=== PATIENT | female | born 1950 | race Caucasian/White ===

== ENCOUNTER → 2016-09-18 | Outpatient (CLI) | payer MEDICARE, OTHER ==
--- NOTE | 2016-09-18 16:00 | BD ---
EXAMINATION TYPE: MG DEXA axial skeleton. DATE OF EXAM: 09/18/2016 10:16 AM COMPARISON: 05.16.2013 CLINICAL HISTORY: M85.80 OSTIOPENIA, Z00.00 ANNUAL PE Height: 59.5 Weight: 139 FRAX RISK QUESTIONS: Alcohol (3 or more units per day): NO Family History (Parent hip fracture): UNKNOWN Glucocorticoids (More than 3mos): NO (Ex: prednisone, prednisolone, methylprednisolone, dexamethasone, and hydrocortisone). History of Fracture in Adulthood: NO Secondary Osteoporosis: 1. Type 1 Diabetes: NO 2. Hyperthyroidism: NO 3. Menopause before 45: NO 4. Malnutrition: NO 5. Chronic liver disease: NO Rheumatoid Arthritis: NO Current Tobacco Use: NO RISK FACTORS HISTORY OF: Family History of Osteoporosis: UNSURE Smoke tobacco: NO Drink Alcohol: SOCIAL Active: YES Diet low in dairy products/other sources of calcium: NO Postmenopausal woman: AT AGE 51 Lost more than 2 inches in height since high school: POSSIBLY Adrenal Insufficiency: NO MEDICATIONS: Thyroid Medications: YES Which medication: LEVTHYROXINE 0.75 How Lon YRS Additional Medications: VIACTIVE, CALCIUM AND D3, Additional History: NONE TO NOTE EXAM MEASUREMENTS: Bone mineral densitometry was performed using the VoluBill System. Bone mineral density as measured about the Lumbar spine is: ----- L1-L4(G/cm2): 1.015 T Score Values are as follows: ----- L1: -1.5 ----- L2: -2.0 ----- L3: -1.2 ----- L4: -1.1 ----- L1-L4: -1.4 Bone mineral density has: Increased 1.4% since study of: 05.16.2013 Bone mineral density about the R hip (g/cm2): 0.895 Bone mineral density about the L hip (g/cm2): 0.859 T Score values are as follows: -----R Neck: -1.0 -----L Neck: -1.3 -----R Intertrochanter: -1.5 -----L Intertrochanter: -1.3 Bone mineral density has: Decreased -6.6% since study of: 05.16.2013 FRAX%'S: FOR MAJOR OSTEOPOROTIC FX: 8.5%......FOR HIP FX: 0.8% PROBABILITY OF FX IN 10 YRS TIME IMPRESSION: Osteopenia (T Score between -2.5 and -1 as noted by T score values There is slightly increased risk of fracture and the patient may be considered for treatment. Re-Screen 1-2 years. NOTE: T-SCORE=SD OF THE YOUNG ADULT MEAN.
== END | disposition home or self-care (01) ==
LOC: RADBDWWP 09:47
PROVIDERS: ATTEND Family Medicine
DX: M85.80 Other specified disorders of bone density and structure, unspecified site (principal)
CPT/HCPCS: 77080

== ENCOUNTER → 2017-04-20 | Outpatient (CLI) | payer MEDICARE, OTHER ==
--- NOTE | 2017-04-20 11:34 | US ---
EXAMINATION TYPE: US abdomen complete DATE OF EXAM: 04/20/2017 COMPARISON: NONE CLINICAL HISTORY: R10.84 Generalized abdominal pain. EXAM MEASUREMENTS: Liver Length: 13.1 cm Gallbladder Wall: 0.3 cm CBD: 0.3 cm Spleen: 9.2 cm Right Kidney: 11.5 x 3.1 x 4.2 cm Left Kidney: 10.9 x 4.4 x 3.9 cm Pancreas: wnl Liver: wnl Gallbladder: multiple stones Evidence for sonographic Griffin's sign: no CBD: 3 mm, within normal limits Spleen: wnl Right Kidney: wnl Left Kidney: portions obscured by overlying bowel gas Upper IVC: wnl Abd Aorta: Bifurcation obscured by overlying bowel gas. Mild to moderate atheromatous changes. Cholelithiasis. The liver is homogenous. The intrahepatic portion of the IVC and proximal abdominal aorta are within normal limits. Common bile duct is unremarkable. The visualized portions of the pancreas are homog enous. The spleen is unremarkable. Kidneys are symmetric and free of hydronephrosis. No renal lesi ons are seen. IMPRESSION: Cholelithiasis without sonographic evidence of cholecystitis.
== END | disposition home or self-care (01) ==
LOC: RADUSWWP 10:22
PROVIDERS: ATTEND Family Medicine
DX: K80.20 Calculus of gallbladder without cholecystitis without obstruction (principal)
CPT/HCPCS: 76700

== ENCOUNTER → 2017-10-17 | Outpatient (CLI) | payer MEDICARE, OTHER ==
--- NOTE | 2017-10-18 13:11 | MM ---
Reason for exam: screening (asymptomatic). Last mammogram was performed 1 year and 3 months ago. History: Patient is postmenopausal. Benign stereotactic core biopsy of the right breast, February 06, 2003. Ultrasound-guided core biopsy of the left breast, January 21, 2003. Cyst aspiration of the left breast. Took estrogen for 4 years 4 months beginning at age 51. Took progesterone for 4 years 4 months beginning at age 51. Physical Findings: A clinical breast exam by your physician is recommended on an annual basis and results should be correlated with mammographic findings. MG 3D Screening Mammo W/Cad Bilateral CC and MLO view(s) were taken. Prior study comparison: July 03, 2016, bilateral MG 3d screening mammo w/cad. June 29, 2015, bilateral MG screening mammo w CAD. The breast tissue is heterogeneously dense. This may lower the sensitivity of mammography. Stable benign calcifications. No significant changes when compared with prior studies. ASSESSMENT: Benign, BI-RAD 2 RECOMMENDATION: Routine screening mammogram of both breasts in 1 year.
== END | disposition home or self-care (01) ==
LOC: RADMAMWWP 13:50
PROVIDERS: ATTEND Family Medicine
DX: Z12.31 Encounter for screening mammogram for malignant neoplasm of breast (principal)
CPT/HCPCS: 77063; 77067

== ENCOUNTER → 2017-10-24 | Day surgery (SDC) | payer MEDICARE, OTHER ==
[2017-10-22 08:49] VITALS: BMI 27.3
[~2017-10-24] MED LIST: LACTATED RINGERS 1,000 ML IV ONE; LACTATED RINGERS 1,000 ML IV SCH; LIDOCAINE 1% 20 ML VIAL (10MG/ML) FOR IV START INTRADERMA PRN; PROPOFOL 10 MG/ML 20 ML VIAL IV ONE
[2017-10-24 08:26] VITALS: TEMP 98.1
--- NOTE | 2017-10-24 08:52 | P.PCN ---
Date of Procedure: 10/24/17 Procedure(s) Performed: BRIEF HISTORY: Patient is a 67-year-old pleasant white female, scheduled for an elective colonoscopy as a part of screening for colon neoplasia. PROCEDURE PERFORMED: Colonoscopy. PREOPERATIVE DIAGNOSIS: Screening for colon cancer. IV sedation per Anesthesia. PROCEDURE: After informed consent was obtained, the patient, was brought into the endoscopy unit. IV sedation was administered by Anesthesia under continuous monitoring. Digital rectal examination was normal. Initially the Olympus CF- 160 flexible video colonoscope was then inserted in the rectum, gradually advanced into the cecum without any difficulty. Careful examination was performed as the scope was gradually being withdrawn. Ileocecal valve and the appendiceal orifice were visualized and appeared normal. Prep was excellent. Mucosa of the cecum, ascending colon, transverse colon, descending colon, sigmoid colon, and rectum appeared normal. Scattered sigmoid diverticulosis. Retroflexion was performed in the rectum and no lesions were seen. The patient tolerated the procedure well. IMPRESSION: Normal-appearing colon from rectum to cecum with no evidence of colorectal neoplasia. Scattered sigmoid diverticulosis. RECOMMENDATIONS: Findings of this examination were discussed with the patient as well as a family. She was advised to have a repeat screening colonoscopy in 10 years.
[2017-10-24 08:57] VITALS: RESP 16
[2017-10-24 09:04] VITALS: BP 129/77; PULSE 71
== END ==
LOC: ORWHC2ENDO 07:59
PROVIDERS: ATTEND Internal Medicine Gastroenterology
DX: Z12.11 Encounter for screening for malignant neoplasm of colon (principal); K57.30 Diverticulosis of large intestine without perforation or abscess without bleeding; E07.9 Disorder of thyroid, unspecified; Z79.899 Other long term (current) drug therapy; Z88.2 Allergy status to sulfonamides
CPT/HCPCS: J2704; G0121

== ENCOUNTER → 2019-02-17 | Outpatient (CLI) | payer MEDICARE, OTHER ==
--- NOTE | 2019-02-18 10:59 | MM ---
Reason for exam: screening (asymptomatic). Last mammogram was performed 1 year and 4 months ago. History: Patient is postmenopausal. Benign stereotactic core biopsy of the right breast, February 06, 2003. Ultrasound-guided core biopsy of the left breast, January 21, 2003. Cyst aspiration of the left breast. Took estrogen for 4 years 4 months beginning at age 51. Took progesterone for 4 years 4 months beginning at age 51. Physical Findings: A clinical breast exam by your physician is recommended on an annual basis and results should be correlated with mammographic findings. MG 3D Screening Mammo W/Cad Bilateral CC and MLO view(s) were taken. Prior study comparison: October 17, 2017, bilateral MG 3d screening mammo w/cad. July 03, 2016, bilateral MG 3d screening mammo w/cad. The breast tissue is heterogeneously dense. This may lower the sensitivity of mammography. No significant changes when compared with prior studies. ASSESSMENT: Benign, BI-RAD 2 RECOMMENDATION: Routine screening mammogram of both breasts in 1 year.
== END | disposition home or self-care (01) ==
LOC: RADMAMWWP 13:29
PROVIDERS: ATTEND Family Medicine
DX: Z12.31 Encounter for screening mammogram for malignant neoplasm of breast (principal)
CPT/HCPCS: 77063; 77067

== ENCOUNTER → 2020-04-26 | Outpatient (CLI) | payer MEDICARE, OTHER ==
--- NOTE | 2020-04-26 18:36 | BD ---
EXAMINATION TYPE: Axial Bone Density DATE OF EXAM: 04/26/2020 COMPARISON: NONE CLINICAL HISTORY: POSTMENOPAUSAL SCREENING Height: 5 FT Weight: 148 FRAX RISK QUESTIONS: Alcohol (3 or more units per day): NO Family History (Parent hip fracture): NO Glucocorticoids (More than 3mos): NO (Ex: prednisone, prednisolone, methylprednisolone, dexamethasone, and hydrocortisone). History of Fracture in Adulthood: NO Secondary Osteoporosis: 1. Type 1 Diabetes: NO 2. Hyperthyroidism: NO 3. Menopause before 45: NO 4. Malnutrition: NO 5. Chronic liver disease: NO Rheumatoid Arthritis: NO Current Tobacco Use: NO RISK FACTORS HISTORY OF: Family History of Osteoporosis: YES Active: YES Postmenopausal woman: AROUND 44-46 MEDICATIONS: Thyroid Medications: YES Which medication: LEVOTHYROXINE How Long: APROX 7 YEARS Additional Medications: LEVOTHYROXINE,B12, FISH OIL,ANTIBIOTIC Additional History: EXAM MEASUREMENTS: Bone mineral densitometry was performed using the Risk Ident System. Bone mineral density as measured about the Lumbar spine is: ----- L1-L4(G/cm2): 0.927 T Score Values are as follows: ----- L2: -2.9 ----- L3: -1.7 ----- L4: -1.9 ----- L1-L4: -2.1 Bone mineral density has: DECREASED -8.6 % since study of: 2017 Bone mineral density about the R hip (g/cm2): 0.887 Bone mineral density about the L hip (g/cm2): 0.866 T Score values are as follows: -----R Neck: -1.1 -----L Neck: -1.2 -----R Total: -0.6 -----L Total: -0.4 Bone mineral density has: INCREASED 2.0 % since study of: 2017 IMPRESSION: Osteopenia (T Score between -2.5 and -1). There is slightly increased risk of fracture and the patient may be considered for treatment. Re-Screen 2-5 years. NOTE: T-SCORE=SD OF THE YOUNG ADULT MEAN.
--- NOTE | 2020-04-27 10:15 | MM ---
Reason for exam: screening (asymptomatic). Last mammogram was performed 1 year and 2 months ago. History: Patient is postmenopausal. Benign stereotactic core biopsy of the right breast, February 06, 2003. Ultrasound-guided core biopsy of the left breast, January 21, 2003. Cyst aspiration of the left breast. Took estrogen for 4 years 4 months beginning at age 51. Took progesterone for 4 years 4 months beginning at age 51. Taking other hormone. Physical Findings: A clinical breast exam by your physician is recommended on an annual basis and results should be correlated with mammographic findings. MG 3D Screening Mammo W/Cad Bilateral CC and MLO view(s) were taken. Prior study comparison: February 17, 2019, bilateral MG 3d screening mammo w/cad. October 17, 2017, bilateral MG 3d screening mammo w/cad. The breast tissue is heterogeneously dense. This may lower the sensitivity of mammography. Stable benign calcifications. There is chronic nodularity in the left breast. No significant changes when compared with prior studies. ASSESSMENT: Benign, BI-RAD 2 RECOMMENDATION: Routine screening mammogram of both breasts in 1 year.
== END | disposition home or self-care (01) ==
LOC: RADMAMWWP 08:56
PROVIDERS: ATTEND Nurse Practitioner
DX: Z12.31 Encounter for screening mammogram for malignant neoplasm of breast (principal); Z78.0 Asymptomatic menopausal state; M85.80 Other specified disorders of bone density and structure, unspecified site
CPT/HCPCS: 77063; 77067; 77080

== ENCOUNTER → 2021-06-07 | Outpatient (CLI) | payer MEDICARE, OTHER ==
--- NOTE | 2021-06-09 10:31 | MM ---
Reason for exam: screening (asymptomatic). Last mammogram was performed 1 year and 1 month ago. History: Patient is postmenopausal. Benign stereotactic core biopsy of the right breast, February 06, 2003. Ultrasound-guided core biopsy of the left breast, January 21, 2003. Cyst aspiration of the left breast. Took estrogen for 4 years 4 months beginning at age 51. Took progesterone for 4 years 4 months beginning at age 51. Taking other hormone. Physical Findings: A clinical breast exam by your physician is recommended on an annual basis and results should be correlated with mammographic findings. MG 3D Screening Mammo W/Cad Bilateral CC and MLO view(s) were taken. Prior study comparison: April 26, 2020, bilateral MG 3d screening mammo w/cad. February 17, 2019, bilateral MG 3d screening mammo w/cad. October 17, 2017, bilateral MG 3d screening mammo w/cad. The breast tissue is extremely dense which could obscure a lesion on mammography. Finding: There are developing fine, regional calcifications in the upper quadrant, middle position of the left breast on MLO view. New finding since April 26, 2020, February 17, 2019, and October 17, 2017. ASSESSMENT: Incomplete: need additional imaging evaluation, BI-RAD 0 RECOMMENDATION: Special view mammogram of the left breast. [facility] will attempt to contact patient to return for supplemental views.
== END | disposition home or self-care (01) ==
LOC: RADMAMWWP 14:18
PROVIDERS: ATTEND Family Medicine
DX: Z12.31 Encounter for screening mammogram for malignant neoplasm of breast (principal)
CPT/HCPCS: 77063; 77067

== ENCOUNTER → 2021-06-24 | Outpatient (CLI) | payer MEDICARE, OTHER ==
--- NOTE | 2021-06-24 11:57 | MM ---
Reason for exam: additional evaluation requested from abnormal screening. Last mammogram was performed 1 month ago. History: Patient is postmenopausal. Benign stereotactic core biopsy of the right breast, February 06, 2003. Ultrasound-guided core biopsy of the left breast, January 21, 2003. Cyst aspiration of the left breast. Took estrogen for 4 years 4 months beginning at age 51. Took progesterone for 4 years 4 months beginning at age 51. Taking other hormone. Physical Findings: Nurse did not find any significant physical abnormalities on exam. MG 3D Work Up W/Cad LT CC with magnification, LM with magnification, and LM view(s) were taken of the left breast. Prior study comparison: June 07, 2021, bilateral MG 3d screening mammo w/cad. April 26, 2020, bilateral MG 3d screening mammo w/cad. The breast tissue is heterogeneously dense. This may lower the sensitivity of mammography. Heterogeneous calcifications. Mammotome core biopsy upper outer left breast. These results were verbally communicated with the patient and result sheet given to the patient on 06/24/21. ASSESSMENT: Suspicious, BI-RAD 4 RECOMMENDATION: Stereotactic core biopsy of the left breast. Called Dr. Boss's office with mammographic findings and has scheduled an appointment for the patient for 07/22/21 at 7:[address] Britt. Biopsy scheduled for 07/22/21 at 7:00. PRELIMINARY REPORT CALLED AND FAXED TO DR. BRITT ON 06/24/21.
== END | disposition home or self-care (01) ==
LOC: RADMAMWWP 10:09
PROVIDERS: ATTEND Family Medicine
DX: R92.8 Other abnormal and inconclusive findings on diagnostic imaging of breast (principal)
CPT/HCPCS: 77065; G0279; 77061

== ENCOUNTER → 2021-07-22 | Outpatient (CLI) | payer MEDICARE, OTHER ==
--- NOTE | 2021-07-22 07:57 | P.GSHP ---
History of Present Illness H&P Date: 07/22/21 Chief Complaint: abnormal mammogram Saranya is a 71 year old white female seen in consultation for Dr. Boss for anabnormal left breast mammogram. She had a screening mammogram performed in May 2021 after which additional views of the left breast were recommended. The patient underwent a left breast diagnostic mammogram on [id number] which revealed heterogeneous calcifications and stereotactic core biopsy upper outer left breast was recommended. The patient does not feel anything of concern in her breasts. She is not complaining of any nipple discharge or skin changes. The patient has had a stereo biopsy of the right breast in the past which was benign. She has had multiple aspirations of both breasts in the past. She has never had any cancer. Caffeine:3 cups/day nicotine: none, stopped 20 years ago used to smoke 1/PPD for 35 years chocolate: occasional Family History: niece: breast cancer Hormonal History: menarche: 13 M1, breast fed: yes, age at first : 19 menopause: 46 BCP: 1 year hormones: none Surgical History: cleft palate tubaligation gallbladder bunyon left foot Medical History: hypothyroid Social History: nicotine: none/ prior smoker alcohol: 4 X year drugs: none - Constitutional Constitutional: Denies chills, Denies fever - EENT Eyes: denies blurred vision, denies pain Ears: deny: decreased hearing, tinnitus Ears, nose, mouth and throat: Denies headache, Denies sore throat - Breasts Breasts: bilateral: as per HPI - Cardiovascular Cardiovascular: Denies chest pain, Denies shortness of breath - Respiratory Respiratory: Denies cough, Denies 7 - Gastrointestinal Gastrointestinal: Denies abdominal pain, Denies diarrhea, Denies nausea, Denies vomiting - Genitourinary (Female) Genitourinary: Denies dysuria, Denies hematuria - Menstruation Menstruation: Reports postmenopausal - Musculoskeletal Comment: ? arthritis right hip Musculoskeletal: Reports myalgias - Integumentary Integumentary: Denies pruritus, Denies rash - Neurological Neurological: Denies numbness, Denies weakness - Psychiatric Psychiatric: Denies anxiety, Denies depression - Endocrine Comment: hypothyroid - Allergic/Immunologic Allergic/Immunologic: Reports as per HPI Medications and Allergies Home Medications Medication Instructions Recorded Confirmed Type Levothyroxine Sodium [Synthroid] 75 mcg PO DAILY 10/22/17 07/22/21 History Allergies Allergy/AdvReac Type Severity Reaction Status Date / Time mercury (elemental) Allergy ITCHY, RAW Verified 07/22/21 07:28 SKIN nickel Allergy ITCHY, RAW Verified 07/22/21 07:28 SKIN Sulfa (Sulfonamide Allergy FACIAL Verified 07/22/21 07:28 Antibiotics) SWELLING Surgical - Exam - General no distress - Eyes normal ocular movement - ENT normal nares - Neck trachea midline - Respiratory normal respiratory effort, clear to auscultation - Cardiovascular Rhythm: regular Heart Sounds: normal: S1, S2 - Abdomen Abdomen: soft - Integumentary normal turgor - Neurologic no disoriented, no combative - Musculoskeletal normal gait - Psychiatric oriented to time, oriented to person, oriented to place, speech is normal, memory intact Breast Exam: BRA: 38B inspection: bilateral grade 2/3 ptosis palpation: right breast: Multi-positional exam fibrocystic changes no dominant masses or nodules of concern Right axilla: No adenopathy of concern left breast: Multiple positional exam fibrocystic changes no dominant masses or nodules of concern Left axilla: No adenopathy of concern Results Mammogram reviewed with Dr. Thornton, microcalcifications of concern noted left breast Assessment and Plan Assessment: Impression: 1. Abnormal left breast mammogram/microcalcifications of concern 2. Fibrocystic breast changes Plan: 1. Stereotactic core biopsy left breast Risks and benefits of the procedure discussed with the patient. Risks include but are not limited to bleeding, infection, reaction to the anesthetic. The possibility of being unable to target the lesion or not obtaining the correct area was also discussed. The patient understands and wishes to proceed. The patient understands the findings are discordant we may recommend needle localization and open biopsy. Cc: Dr. Boss
--- NOTE | 2021-07-22 08:51 | P.PCN ---
Date of Procedure: 07/22/21 Preoperative Diagnosis: Microcalcifications of concern left breast upper outer quadrant region Postoperative Diagnosis: Same Procedure(s) Performed: Left breast stereotactic core biopsy Anesthesia: local Surgeon: Cait Britt Pathology: other (Breast tissue with microcalcifications of concern noted in radiograph) Condition: stable Disposition: same day Indications for Procedure: Microcalcifications of concern left breast upper outer quadrant Operative Findings: Microcalcifications of concern x-ray specimen left breast Description of Procedure: The patient is a 71-year-old white female who on a routine screening mammogram was noted to have microcalcifications of concern in her left breast. Diagnostic mammogram confirmed this and she was recommended to undergo a stereotactic core biopsy. Risks and benefits of the procedure were discussed with the patient and she wished to proceed. The patient was taken to the stereotactic core biopsy. She was placed prone on the lower lid table. A quality assurance lab technician film was obtained. The calcifications of concern were identified. CC from above approach was utilized. The lesion of concern was targeted. The breast was prepped using Betadine. 20 mL of 1% lidocaine were used to anesthetize the area of concern. A 9-gauge vacuum- assisted core rotating biopsy needle was driven to the correct coordinates. Prefire film was obtained. The needle was fired and a post-fire film was obtained. The needle appeared to be in the correct location. 12 core biopsy specimens were obtained. Radiograph of the specimen revealed the microcalcifications of concern. A secure marked Top hat clip was placed. This appeared to be in the correct location. The patient tolerated the procedure in stable condition. Specimen was sent to pathology. The patient will follow-up with Dr. Ross for post procedure results.
== END | disposition home or self-care (01) ==
LOC: WWCWWP 07:00
PROVIDERS: ATTEND Surgery
DX: Z53.9 Procedure and treatment not carried out, unspecified reason (principal)

== ENCOUNTER → 2021-07-22 | Day surgery (SDC) | payer MEDICARE, OTHER ==
[2021-07-22 07:34] VITALS: RESP 16
[2021-07-22 09:02] VITALS: BP 150/92; PULSE 73; TEMP 98.1
--- NOTE | 2021-07-22 09:39 | MM ---
The patient is a 71-year-old white female who on a routine screening mammogram was noted to have microcalcifications of concern in her left breast. Diagnostic mammogram confirmed this and she was recommended to undergo a stereotactic core biopsy. Risks and benefits of the procedure were discussed with the patient and she wished to proceed. The patient was taken to the stereotactic core biopsy. She was placed prone on the lo-rad table. A pediatric physician assistant film was obtained. The calcifications of concern were identified. CC from above approach was utilized. The lesion of concern was targeted. The breast was prepped using Betadine. 20 mL of 1% lidocaine were used to anesthetize the area of concern. A 9-gauge vacuum- assisted core rotating biopsy needle was driven to the correct coordinates. Prefire film was obtained. The needle was noted to be in the correct location. The needle was fired and a post-fire film was obtained. The needle appeared to be in the correct location. 12 core biopsy specimens were obtained. Radiograph of the specimen revealed the microcalcifications of concern. A secure marked Top hat clip was placed. This appeared to be in the correct location. The patient tolerated the procedure in stable condition. Specimen was sent to pathology. The patient will follow-up with Dr. Ross for post procedure results. [facility] MEDICAL CENTERBrijesh
== END ==
LOC: RADMAMWWP 07:24
PROVIDERS: ATTEND Surgery
DX: R92.0 Mammographic microcalcification found on diagnostic imaging of breast (principal)
CPT/HCPCS: 19081; 88305; A4648; J2001

== ENCOUNTER → 2021-08-04 | Outpatient (CLI) | payer MEDICARE, OTHER ==
[2021-08-04 10:13] VITALS: BP 144/88; PULSE 78; RESP 18; TEMP 98.3
--- NOTE | 2021-08-04 10:17 | P.PN ---
Subjective Progress Note Date: 08/04/21 Principal diagnosis: Fibrocystic breast changes Saranya is a 71-year-old white female status post left breast stereotactic core biopsy on [id number]. Pathology revealed fibrocystic changes including cyst with calcifications and dense stromal fibrosis/scar. The patient post procedure has done well with no complaints. The pathology slides were reviewed with Dr. Anderson, he felt that this was not a radial scar but it should be followed closely. This was discussed with the patient. She will have a repeat left breast mammogram in 6 months with a physician exam at that time.] Objective - Constitutional General appearance: Present: cooperative - EENT Eyes: Present: EOMI - Neck Neck: Present: normal ROM - Respiratory Respiratory: bilateral: CTA - Cardiovascular Rhythm: regular Heart sounds: normal: S1, S2 - Integumentary Integumentary Comment(s): Biopsy site clean and dry - Psychiatric Psychiatric: Present: A&O x's 3, appropriate affect, intact judgment & insight Assessment and Plan Assessment: Impression: Patient status post left breast stereo biopsy [id number]. Pathology benign, this was reviewed with pathology and not felt to be a radial scar however close surveillance is recommended Plan: Repeat left breast mammogram and examination in 6 months CC: Dr. Boss
== END | disposition home or self-care (01) ==
LOC: WWCWWP 09:47
PROVIDERS: ATTEND Surgery
DX: Z53.9 Procedure and treatment not carried out, unspecified reason (principal)

== ENCOUNTER 2021-08-22 16:39 | Emergency (ER) | payer MEDICARE, OTHER ==
--- NOTE | 2021-08-22 17:54 | ED ---
General Adult HPI <Hina Cee - Last Filed: 08/22/21 17:53> - General Source: patient, RN notes reviewed, old records reviewed - History of Present Illness -: days(s) (3) Location: head Severity scale (1-10): 0 Consistency: now resolved Improves with: none Worsens with: none Associated Symptoms: fever/chills, headaches, malaise Treatments Prior to Arrival: none <Flo Ramsey - Last Filed: 08/22/21 23:12> - General Stated complaint: headache & fever Time Seen by Provider: 08/22/21 20:40 - History of Present Illness Initial comments: Claudia moncada 71-year-old female presents to the ER today via private vehicle with a complaint of headache, fever for 3 days duration. Patient multiple sick contacts at [facility] last night but subsequently tested positive and been hospitalized for COVID-19. Patient is concerned that herself and her mother have COVID-19. Patient is not vaccinated. (Hina Cee) This is a well-appearing 71-year-old female that presents to the emergency room with family member complaining of 3 days of headache malaise. She has not been vaccinated against coronavirus. She is Covid positive and requesting monoclonal antibodies. (Flo Ramsey) - Related Data Home Medications Medication Instructions Recorded Confirmed Levothyroxine Sodium [Synthroid] 75 mcg PO DAILY 10/22/17 08/04/21 Ascorbic Acid [Vitamin C] 500 mg PO BID 08/04/21 08/04/21 Calcium Carbonate [Calcium] 600 mg PO BID 08/04/21 08/04/21 Cholecalciferol [Vitamin D3 (25 50 mcg PO BID 08/04/21 08/04/21 Mcg = 1000 Iu)] Fish Oil/Dha/Epa [Fish Oil 1,200 1 each PO DAILY 08/04/21 08/04/21 mg Fish Oil] Multivitamin [Multivitamins Adult 1 each PO BID 08/04/21 08/04/21 Gummies] Turmeric Root Extract [Turmeric] 500 mg PO DAILY 08/04/21 08/04/21 Zinc 50 mg PO HS 08/04/21 08/04/21 Allergies Allergy/AdvReac Type Severity Reaction Status Date / Time mercury (elemental) Allergy ITCHY, RAW Verified 08/22/21 17:51 SKIN nickel Allergy ITCHY, RAW Verified 08/22/21 17:51 SKIN Sulfa (Sulfonamide Allergy FACIAL Verified 08/22/21 17:51 Antibiotics) SWELLING Review of Systems ROS Other: All systems not noted in ROS Statement are negative. <ColemanHina P - Last Filed: 08/22/21 17:53> ROS Other: All systems not noted in ROS Statement are negative. <Flo Ramsey - Last Filed: 08/22/21 23:12> ROS Statement: Those systems with pertinent positive or pertinent negative responses have been documented in the HPI. Past Medical History History of Any Multi-Drug Resistant Organisms: None Reported Smoking Status: Former smoker <Hina Cee P - Last Filed: 08/22/21 17:53> General Exam General appearance: alert, in no apparent distress Head exam: Present: atraumatic, normocephalic, normal inspection Eye exam: Present: normal appearance, EOMI. Absent: scleral icterus, conjunctival injection ENT exam: Present: normal exam, normal oropharynx, mucous membranes moist Neck exam: Present: normal inspection, full ROM. Absent: tenderness, meningismus, lymphadenopathy, thyromegaly Respiratory exam: Present: normal lung sounds bilaterally. Absent: respiratory distress, wheezes, rales, rhonchi, stridor Cardiovascular Exam: Present: regular rate, normal rhythm, normal heart sounds. Absent: systolic murmur, diastolic murmur, rubs, gallop, clicks, JVD Extremities exam: Present: full ROM, normal capillary refill Neurological exam: Present: alert, oriented X3, normal gait Psychiatric exam: Present: normal affect, normal mood Skin exam: Present: warm, dry, intact, normal color. Absent: rash, cyanosis, diaphoretic <Flo Ramsey - Last Filed: 08/22/21 23:12> Course Vital Signs 08/22/21 08/22/21 17:52 21:02 Temperature 99 F Pulse Rate 84 68 Respiratory 20 18 Rate Blood Pressure 138/93 150/94 O2 Sat by Pulse 97 95 Oximetry Medical Decision Making <Flo Ramsey - Last Filed: 08/22/21 23:12> - Medical Decision Making This is a well-appearing 71-year-old female that presents to the emergency room with family member complaining of 3 days of headache malaise. She denies any difficulty in breathing or chest pain. She has not been vaccinated against coronavirus and has had multiple sick contacts. She is Covid positive and was given monoclonal antibody infusion and tolerated it well. Her vital signs are stable and her oxygen saturation is 97% on room air. She was directed to self quarantine for 10 days from symptom onset and 24 hours without a fever. Take vitamin C, vitamin D, and zinc for immune health. Increase her fluid intake. Follow-up with the primary care doctor and return to the emergency room with any new or worsening symptoms. Case discussed with Dr. Cee (Flo Ramsey) - Lab Data Lab Results 08/22/21 Range/Units 17:57 Coronavirus (PCR) Detected A (Not Detectd) Disposition <Hina Cee - Last Filed: 08/22/21 17:53> Is patient prescribed a controlled substance at d/c from ED?: No Time of Disposition: 23:12 <Flo Ramsey - Last Filed: 08/22/21 23:12> Clinical Impression: COVID-19 Disposition: HOME SELF-CARE Condition: Good Instructions (If sedation given, give patient instructions): Coronavirus Disease 2019 (COVID-19) Additional Instructions: Increase your fluid intake. Tylenol and/or Motrin as needed for body aches or fevers. Vitamin C, vitamin D and zinc to improve immune health. Self- quarantine for 10 days from symptom onset and 24 hours without a fever. Return to the emergency room with any new or worsening symptoms. Referrals: Bri Boss MD [Primary Care Provider] - 1-2 days
[2021-08-22 17:56] VITALS: TEMP 99
[2021-08-22 21:05] VITALS: RESP 18
[2021-08-22] MEDS ORDERED: SODIUM CHLORIDE 0.9% 50 ML IVPB ONE (21:15)
[2021-08-22] MEDS ORDERED: BAMLANIVIMAB (EUA) 700 MG, ETESEVIMAB (EUA) 1,400 MG in SODIUM CHLORIDE 0.9% 50 ML IVPB ONE (21:15)
[2021-08-22 23:38] VITALS: BP 135/87; PULSE 81
== END 2021-08-22 23:38 | disposition home or self-care (01) ==
LOC: EC 16:39
DX: U07.1 COVID-19 (principal); Z87.891 Personal history of nicotine dependence; Z91.09 Other allergy status, other than to drugs and biological substances; Z88.2 Allergy status to sulfonamides
CPT/HCPCS: 87635; 99284; J3490

== ENCOUNTER → 2021-12-02 | Outpatient (CLI) | payer MEDICARE, OTHER ==
[2021-12-02 13:53] LABS: Partial Thromboplastin Time 24.2 sec (22.0-30.0); Prothrombin Time 10.5 sec (9.0-12.0)
[2021-12-02 18:00] LABS: African American GFR (CKD) 101.7 (60.0-200.0); Albumin 4.5 g/dL (3.8-4.9); Albumin/Globulin Ratio 1.67 (1.60-3.17); Anion Gap 9.9 mmol/L (10.00-18.00); BUN/Creat Ratio 15.43 Ratio (12.00-20.00); Blood Urea Nitrogen 10.8 mg/dL (9.0-27.0); Calcium 9.7 mg/dL (8.7-10.3); Carbon Dioxide 28.1 mmol/L (20.0-27.5); Globulin 2.7 g/dL (1.6-3.3); Non-African American GFR(CKD) 87.8 (60.0-200.0); Potassium 4.3 mmol/L (3.5-5.5); Total Bilirubin 0.5 mg/dL (0.30-1.20); Total Protein 7.2 g/dL (6.2-8.2)
[2021-12-02 18:12] LABS: HCT 43.1 % (37.2-46.3); HGB 13.8 g/dL (12.0-15.0); MCH 28.9 pg (27.0-32.0); MCV 90.4 fL (80.0-97.0); Mean Platelet Volume 10.7 fL (9.5-12.2); NRBC Per 100 WBC 0 /100 WBCS (0.0-0.0); Platelet Count 248 X 10*3/uL (140-440); RBC 4.77 X 10*6/uL (4.10-5.20); RDW 12.9 % (11.5-14.5); WBC 5.91 X 10*3/uL (4.50-10.00)
[2021-12-02 18:40] LABS: Appearance,Urine Clear (Clear); Bilirubin,Urine Negative (Negative); Blood,Urine Negative (Negative); Color,Urine Yellow (Yellow); Ketones,Urine Negative (Negative); Nitrite,Urine Negative (Negative); PH, Urine 7.5 (5.0-8.0); Specific Gravity,Urine 1.005 (1.001-1.030); Urobilinogen,Urine 0.2 (0.2,1.0)
== END | disposition home or self-care (01) ==
LOC: LABPAT 11:49
PROVIDERS: ATTEND Orthopaedic Surgery
DX: Z01.812 Encounter for preprocedural laboratory examination (principal)
CPT/HCPCS: 36415; 80053; 81003; 85027; 85610; 85730; 87070; 93005

== ENCOUNTER 2021-12-30 06:06 | Day surgery (SDC) | payer MEDICARE, OTHER ==
[2021-12-28 12:43] VITALS: BMI 27.3
[~2021-12-30 06:06] MED LIST changes: +ACETAMINOPHEN TAB 500 MG TAB PO PRN; +DEXAMETHASONE SOD PHOSPHATE 10 MG/ML 1 ML VIAL IV PRN; +DOCUSATE 100 MG CAP PO PRN; +FAMOTIDINE 20 MG/2 ML VIAL IVP PRN; +KETOROLAC 15 MG/ML 1 ML VIAL IVP PRN; -LACTATED RINGERS 1,000 ML IV ONE; -LACTATED RINGERS 1,000 ML IV SCH; -LIDOCAINE 1% 20 ML VIAL (10MG/ML) FOR IV START INTRADERMA PRN; +MIDAZOLAM 2 MG/2 ML VIAL IV PRN; +ONDANSETRON 4 MG/2 ML VIAL IVP PRN; -PROPOFOL 10 MG/ML 20 ML VIAL IV ONE; +TRANEXAMIC ACID IN NACL,ISO-OS 1,000 MG in SALINE 1 100ML.BAG IVPB PRN; +oxyCODONE ER 10 MG TAB.ER.12H PO PRN
[2021-12-30] MEDS: LACTATED RINGERS 1,000 ML IV SCH ×2 (06:47→11:30)
[2021-12-30] MEDS ORDERED: DEXAMETHASONE SOD PHOSPHATE 4 MG/ML 1 ML VIAL IVP ONE (07:24)
[2021-12-30] MEDS ORDERED: ROPIVACAINE/EPI/CLONIDINE/KET 50 ML SYRINGE MISCELLANE PRN (07:25)
[2021-12-30] MEDS ORDERED: PROPOFOL 10 MG/ML 20 ML VIAL IV ONE (07:41)
[2021-12-30] MEDS ORDERED: ROCURONIUM 10 MG/ML (5 ML VIAL) IV ONE (07:41)
[2021-12-30] MEDS ORDERED: MIDAZOLAM 2 MG/2 ML VIAL ONE (07:41)
[2021-12-30] MEDS ORDERED: PHENYLEPHRINE-0.9% NACL SYG 1,000 MCG/10 ML SYRINGE ONE (07:41)
[2021-12-30] MEDS ORDERED: NEOSTIGMINE 1 MG/ML 10 ML VIAL ONE (07:41)
[2021-12-30] MEDS ORDERED: GLYCOPYRROLATE 0.2 MG/ML 2 ML VIAL ONE (07:41)
[2021-12-30] MEDS ORDERED: hydrALAZINE HCL 20 MG/ML 1 ML VIAL ONE (07:41)
[2021-12-30] MEDS ORDERED: fentaNYL (PF) 50 MCG/ML 2 ML AMP ONE (07:41)
[2021-12-30] MEDS ORDERED: TRANEXAMIC ACID IN NACL,ISO-OS 1,000 MG/100 ML BAG ONE (07:41)
[2021-12-30] MEDS ORDERED: LIDOCAINE 2% INJ 20 MG/ML (2 ML VIAL) ONE (07:41)
[2021-12-30] MEDS ORDERED: diphenhydrAMINE 50 MG/ML 1 ML VIAL ONE (07:41)
--- NOTE | 2021-12-30 10:11 | P.OP ---
Date of Procedure: 12/30/21 Preoperative Diagnosis: Severe right hip osteoarthritis Postoperative Diagnosis: Same Procedure(s) Performed: Right direct anterior total hip arthroplasty Implants: 1. Boutte Tr[place] II 46 m cup 2. Antonio accolade II size #3 standard offset femoral stem 3. Dual mobility articulation, 36 mm outer diameter head, 22 mm inner diameter +0 Anesthesia: MAUREEN Surgeon: Darryl Shell Chief Nuclear Medicine Technologist #1: Natalie Stafford Estimated Blood Loss (ml): 300 IV fluids (ml): 1,200 Pathology: none sent Condition: stable Disposition: PACU Indications for Procedure: I had a long discussion with the patient in the office on the potential risks and complications of an elective total hip replacement through a direct anterior approach. Risks discussed include, but are certainly not limited to, risks from anesthesia, superficial infection requiring local wound care or antibiotics, deep anne marie-prosthetic joint infection and the treatment required to eradicate infection, intraoperative fracture, postoperative periprosthetic fracture, damage to local blood vessels or nerves particularly the lateral femoral cutaneous nerve, delayed wound healing requiring local wound care or possibly surgical debridement, hip dislocation, leg length discrepancy, soft tissue irritation around the total hip implant such as iliopsoas tendinitis or trochanteric bursitis, wear and osteolysis from the implants, squeaking or audible noises, groin pain, thigh pain, heterotopic ossification, stiffness, aseptic loosening of the implants, dissatisfaction with surgical outcome, need for revision surgery, DVT, PE, swelling of the operative extremity, acute coronary event, stroke, failure to thrive, and possibly loss of life or limb. The patient understands that while these are the most common complications after an elective hip replacement there are certainly other less common complications possible. They were given ample time to ask questions regarding the potential complications of a hip replacement. Following our discussion the patient provided their verbal and written consent to go forward with an elective total hip replacement. Description of Procedure: The patient was identified in the preoperative holding area and the correct hip was marked with my initials. I reviewed the procedure and consent with the patient. All of their questions were answered. The patient was then brought back into the operating room by anesthesia. While on the [facility] anesthesia was administered by the anesthesia team. Preoperative antibiotics and tranexamic acid were also given. After the patient was under anesthesia I examined their ankles to determine their preoperative leg length discrepancy. The skin over the anterior aspect of the hip was shaved to remove hair over the site of planned incision. Both feet and ankles were padded with webril and boots for the [place] were applied. The patient was then carefully transferred onto the [place] table. A perineal post was immediately placed. The arms were placed on arm holders and were well-padded. Both boots were secured to the spars on the [place] table. The patient was positioned so that the pelvis was centered over the post. Nonsterile drapes were applied. A timeout was performed identifying the correct patient, operative extremity, and procedure. At this point fluoroscopy was brought in to take preoperative images of the pelvis and operative hip. Using the standing AP pelvis from the office as a template, a comparable image was obtained with fluoroscopy. A metallic bar was used to create a bi-ischial line for use as a reference to leg length adjustments during the procedure. Global offset was also measured on both the operative and nonoperative leg. Fluoroscopy was then brought out and a pre-scrub using a chlorhexidine scrub brush was performed. The operative limb was then prepped and draped in the standard sterile fashion. An anterior longitudinal incision was made lateral and distal to the ASIS. The skin and subcutaneous tissues were incised sharply. The underlying tensor fascia was identified and incised in its midportion. The fascia was dissected free from the underlying muscle and the muscle belly was retracted. A blunt tipped cobra retractor was placed over the superior neck under the muscle fibers of the gluteus minimus. The deep enveloping fascia of the tensor was incised. The anterior leash of vessels were then identified and cauterized. The fascia between the rectus and the capsule was then incised and the pre-capsular fat was excised. A second Cobra was placed inferior to the neck. The interval between the rectus and iliocapsularis and the hip capsule was developed and a retractor was placed carefully over the anterior rim of the acetabulum. A T-shaped anterior capsulotomy was performed. The superior capsular leaflet was left in place in the inferior capsular flap was excised. The Cobra retractors were placed intracapsularly. We then made a femoral neck osteotomy according to preoperative and intraoperative templating and confirmed the level of the osteotomy using fluoroscopic imaging. The femoral head was removed, passed off to the back table, and sized. The superior capsular flap was excised. Retractors were placed circumferentially exposing the acetabulum. We then circumferentially debrided the acetabulum free of labrum and osteophytes. The pulvinar was removed to fully visualize the cotyloid fossa. We then sequentially reamed to achieve peripheral fit and excellent bleeding subchondral bone. The socket was thoroughly irrigated. The acetabular component was impacted into the appropriate position using fluoroscopy to guide version, inclination, and depth of insertion taking care to have a comparable image of the AP pelvis to the standing image taken in the office. An excellent press-fit was achieved and final position was confirmed using fluoroscopy. The press fit was augmented with bony cancellus dome screws. The liner was then impacted into the socket. Attention was then turned to the femur. The remnant dorsal lateral capsule was excised. The short external rotators were visible and protected. A bone hook was used to confirm appropriate translation of the trochanter away from the acetabulum. The leg was then extended and adducted and the bone hook was used to elevate the femur for broaching. A box osteotome and blunt tipped canal sound was then utilized to gain access to the femoral canal. We then sequentially broached the femur in appropriate anteversion until excellent torsional stability was achieved. The neck cut was brought flush to the trial broach with a calcar planar. A trial neck and head were then placed onto the broach and the hip was atraumatically reduced under direct visualization. External rotation to 90 was performed to assess stability. Fluoroscopy was brought in. An AP and lateral fluoroscopic image of the proximal femur was obtained to assess position and fill of the trial broach. An AP of the pelvis was then obtained and matched to the preoperative image taken. A bi-ischial bar was then placed and measurements were taken to assess changes in length and offset. The hip was then carefully dislocated, the proximal femur was exposed, and the trial implants were removed. The wound and proximal femur was thoroughly irrigated using sterile saline and pulsatile lavage. The final femo ral implant was dispensed and gently tapped into place generating an excellent press-fit. The trunnion was cleansed and the final head was tapped into place to engage the [place] taper. The acetabulum was irrigated and visualized to be free of debris. The hip was carefully reduced. Stability was checked clinically with external rotation to 90 and there was no evidence of instability. Final fluoroscopic images were taken. The wound was then thoroughly irrigated and soaked with a dilute Betadine rinse for 3 minutes. 3 L of sterile saline was irrigated through the wound using pulsatile lavage. Local anesthetic cocktail was injected into the soft tissues around the surgical field. A deep drain was placed. The wound was then closed in layers. A sterile dressing was placed over the surgical incision and drain site. The drapes were taken down and the patient was carefully transferred off of the [place] table. Following removal of the boots the leg lengths felt acceptable. The patient was then taken to recovery room having tolerated the procedure well. Natalie Stafford PA-C was required as a skilled gift shop assistant for patient positioning, surgical exposure, retraction, placement of implants, and closure of the surgical wound. PLAN: The patient can weight-bear as tolerated on the operative extremity. 2 doses of postoperative antibiotics. DVT prophylaxis with aspirin 81 mg twice a day based on preoperative risk stratification. Physical therapy for gait training. Discontinue drain postoperative day #1 if output is less than 100 mL per shift.
[2021-12-30] MEDS ORDERED: ONDANSETRON 4 MG/2 ML VIAL IVP PRN (10:14)
[2021-12-30] MEDS ORDERED: HYDROmorphone 0.5 MG/0.5 ML SYRINGE IVP PRN ×3 (10:14)
[2021-12-30] MEDS ORDERED: hydrOXYzine pamoate 25 MG CAP PO PRN (10:14)
[2021-12-30] MEDS ORDERED: HYDROcodone/APAP 5-325MG 1 EACH TAB PO PRN (10:14)
[2021-12-30] MEDS ORDERED: NALOXONE 0.4 MG/ML 1 ML VIAL IV PRN (10:14)
--- NOTE | 2021-12-30 10:43 | FL ---
Fluoroscopy HISTORY: Right hip replacement 43 seconds fluoroscopy time supplied to the referring clinician. 5 intraoperative C-arm images docum ent the procedure. See dictated report from orthopedic surgery.
[2021-12-30] MEDS ORDERED: ONDANSETRON 4 MG/2 ML VIAL IVP ONE (11:08)
[2021-12-30] MEDS: HYDROmorphone 0.5 MG/0.5 ML SYRINGE IVP PRN ×2 (11:09→17:19)
--- NOTE | 2021-12-30 14:56 | P.CONS ---
History of Present Illness - Reason for Consult Consult date: 12/30/21 - History of Present Illness Saranya Blackwell, he is a 71-year-old female patient of Dr. Boss who was admitted to [facility] by Dr. Feliciano, patient has a known history of severe arthritis in the right hip that failed conservative management, she underwent right total hip arthroplasty on 12/30/2021, medical consultation was requested for management while hospitalized. Her past medical history is significant for history of hypothyroidism, history of depression, and history of osteoarthritis, patient denies any history of heart disease or lung disease. Past Medical History Past Medical History: Hyperlipidemia, Thyroid Disorder Additional Past Medical History / Comment(s): Hypothyroid History of Any Multi-Drug Resistant Organisms: None Reported Past Surgical History: Cholecystectomy, Tubal Ligation Additional Past Surgical History / Comment(s): cleft palate age 3, bunion Past Anesthesia/Blood Transfusion Reactions: Family History of Problems w/ Anesthesia, Postoperative Nausea & Vomiting (PONV) Additional Past Anesthesia/Blood Transfusion Reaction / Comm: Mother had PONV. Past Psychological History: Anxiety Smoking Status: Former smoker Past Alcohol Use History: Occasional Additional Past Alcohol Use History / Comment(s): Smoked at age 17, quit age 56, 1 ppd. Past Drug Use History: None Reported - Past Family History Mother Family Medical History: Pulmonary Embolus Additional Family Medical History / Comment(s): Covid w/ PE Medications and Allergies Home Medications Medication Instructions Recorded Confirmed Type Levothyroxine Sodium [Synthroid] 75 mcg PO DAILY 10/22/17 12/30/21 History Ascorbic Acid [Vitamin C] 500 mg PO BID 08/04/21 12/30/21 History Calcium Carbonate [Calcium] 600 mg PO BID 08/04/21 12/30/21 History Cholecalciferol [Vitamin D3 (25 50 mcg PO BID 08/04/21 12/30/21 History Mcg = 1000 Iu)] Multivitamin [Multivitamins Adult 1 each PO BID 08/04/21 12/30/21 History Gummies] Zinc 50 mg PO HS 08/04/21 12/30/21 History Escitalopram [Lexapro] 5 mg PO DAILY 12/28/21 12/30/21 History Aspirin 81 mg PO BID 30 Days #60 tab 12/30/21 Rx Diclofenac Sodium [Voltaren] 75 mg PO BID 30 Days #60 tab 12/30/21 Rx Docusate [Colace] 100 mg PO BID #60 capsule 12/30/21 Rx HYDROcodone/APAP 5-325MG [[place] 1 tab PO Q6HR PRN 7 Days #30 tab 12/30/21 Rx 5-325] Omeprazole 40 mg PO DAILY 30 Days #30 cap 12/30/21 Rx Allergies Allergy/AdvReac Type Severity Reaction Status Date / Time mercury (elemental) Allergy ITCHY, RAW Verified 12/30/21 06:48 SKIN nickel Allergy ITCHY, RAW Verified 12/30/21 06:48 SKIN Sulfa (Sulfonamide Allergy FACIAL Verified 12/30/21 06:48 Antibiotics) SWELLING Physical Exam Vitals: Vital Signs Temp Pulse Resp BP Pulse Ox 12/30/21 14:00 98.4 F 77 16 134/83 97 12/30/21 12:30 75 16 122/71 97 12/30/21 12:00 66 16 115/68 96 12/30/21 11:45 76 16 119/64 97 12/30/21 11:30 76 16 121/66 96 12/30/21 11:15 73 16 124/68 100 12/30/21 11:00 71 16 150/81 100 12/30/21 10:45 72 16 135/76 100 12/30/21 10:30 82 14 128/66 100 12/30/21 10:20 74 14 129/69 99 12/30/21 10:07 97.7 F 76 14 129/68 100 12/30/21 06:52 78 F L 78 18 151/93 96 Intake and Output 12/29/21 12/30/21 12/30/21 22:59 06:59 14:59 Intake Total 200 950 Output Total 340 Balance 200 610 Intake: IV 200 950 Output: Drainage 40 Right Hip 40 Estimated Blood Loss 300 Other: Weight 68.4 kg 68.4 kg In general patient is alert and oriented x 3 in no distress HEENT head normocephalic and atraumatic Neck is supple no JVD no goiter no lymphadenopathy no carotid bruit Chest examination is clear to auscultation no crackles no wheezing Cardiac exam reveals regular heart sounds S1 and S2 no gallops no murmurs Abdomen is soft nontender no organomegaly with normal bowel sounds Extremity exam reveals no edema no cyanosis or clubbing Neurological examination reveals no gross focal deficits Assessment and Plan Plan: 1. Severe arthritis in the right hip status post right total hip arthroplasty today. DVT prophylaxis and pain management as per orthopedic protocol. 2. Underlying history of hypothyroidism maintained on Synthroid will resume 3. Underlying history of depression maintained on Lexapro we'll continue Will check labs in a.m. and follow closely during this hospitalization
[2021-12-30] MEDS: CHOLECALCIFEROL 25 MCG (1000 IU) TABLET PO SCH (20:21)
[2021-12-30] MEDS: ASPIRIN 81 MG PO SCH (20:21)
[2021-12-30] MEDS: ASCORBIC ACID 500 MG TAB PO SCH (20:21)
[2021-12-30] MEDS: CALCIUM CARBONATE 500 MG CHEWABLE PO SCH (20:21)
[2021-12-30] MEDS ORDERED: ZINC SULFATE 220 MG CAP PO SCH (21:00)
[2021-12-30] MEDS ORDERED: SENNOSIDES-DOCUSATE SODIUM 1 EACH TAB PO SCH (21:00)
[2021-12-30] MEDS: HYDROcodone/APAP 5-325MG 1 EACH TAB PO PRN (23:32)
[2021-12-31 03:12] VITALS: TEMP 98.3
[2021-12-31] MEDS ORDERED: LEVOTHYROXINE 75 MCG TAB PO SCH (06:30)
[2021-12-31 07:22] VITALS: BP 112/70; PULSE 80; RESP 16
[2021-12-31] MEDS: CALCIUM CARBONATE 500 MG CHEWABLE PO SCH (07:23)
[2021-12-31] MEDS: ASCORBIC ACID 500 MG TAB PO SCH (07:23)
[2021-12-31] MEDS: CHOLECALCIFEROL 25 MCG (1000 IU) TABLET PO SCH (07:23)
[2021-12-31] MEDS: ASPIRIN 81 MG PO SCH (07:24)
[2021-12-31] MEDS: HYDROcodone/APAP 5-325MG 1 EACH TAB PO PRN ×2 (07:24→12:42)
[2021-12-31 08:40] LABS: Basophils # (A) 0.02 X 10*3/uL (0.00-0.10); Basophils % (A) 0.2 %; Eosinophils # (A) 0.02 X 10*3/uL (0.04-0.35); Eosinophils % (A) 0.2 %; HCT 31.5 % (37.2-46.3); HGB 10.1 g/dL (12.0-15.0); Immature Grans, Automated 0.4 %; Lymphocytes # (A) 1.54 X 10*3/uL (0.90-5.00); Lymphocytes % (A) 18.8 %; MCH 29.3 pg (27.0-32.0); MCHC 32.1 g/dL (32.0-37.0); MCV 91.3 fL (80.0-97.0); Mean Platelet Volume 10.4 fL (9.5-12.2); Monocytes # (A) 0.83 X 10*3/uL (0.20-1.00); Monocytes % (A) 10.1 %; NRBC Per 100 WBC 0 /100 WBCS (0.0-0.0); Neutrophils # (A) 5.75 X 10*3/uL (1.80-7.70); Neutrophils % (A) 70.3 %; Platelet Count 208 X 10*3/uL (140-440); RBC 3.45 X 10*6/uL (4.10-5.20); RDW 12.5 % (11.5-14.5); WBC 8.19 X 10*3/uL (4.50-10.00)
[2021-12-31] MEDS ORDERED: ESCITALOPRAM 5 MG TAB PO SCH (09:00)
[2021-12-31] MEDS ORDERED: MULTIVITAMINS, THERA 1 EACH TAB PO SCH (09:00)
--- NOTE | 2021-12-31 11:48 | P.DS ---
Providers Expected date of discharge: 12/31/21 Attending physician: Darryl Shell Consults: 12/30/21 10:18 Consult Physician Routine Consulting Provider: Geremias Galeana Consult Reason/Comments: medical management Do you want consulting provider notified?: Yes Primary care physician: Bri Boss - Discharge Diagnosis(es) (1) Osteoarthritis of right hip Patient was admitted to the OR on 12/30/21 to undergo a right total hip arthroplasty. She had failed conservative measures as an outpatient and desired to proceed with elective surgery after given informed consent. She underwent the above procedure which she tolerated well without complication. Postoperative hospital course has remained without complication. On day of discharge she is afebrile, vital signs stable, labs within acceptable ranges, tolerating by mouth meds and diet, voiding without difficulty, positive flatus, denies abdominal pain or calf pain, pain is controlled on oral pain medication and has no new complaints. Wound is benign, neurovascular status is intact, calves are soft and nontender, abdomen soft and nontender. Review of systems is negative for numbness, tingling, fever, chills, chest pain, shortness of breath, nausea, vomiting, dizziness, headaches, slurred speech or other. Current Visit: Yes Status: Acute Priority: Medium Procedures: Right CHARLEY Patient Condition at Discharge: Good Plan - Discharge Summary Discharge Rx Participant: No New Discharge Prescriptions: New Docusate [Colace] 100 mg PO BID #60 capsule HYDROcodone/APAP 5-325MG [[place] 5-325] 1 tab PO Q6HR PRN 7 Days #30 tab PRN Reason: Pain Aspirin 81 mg PO BID 30 Days #60 tab Omeprazole 40 mg PO DAILY 30 Days #30 cap Diclofenac Sodium [Voltaren] 75 mg PO BID 30 Days #60 tab No Action Levothyroxine Sodium [Synthroid] 75 mcg PO DAILY Cholecalciferol [Vitamin D3 (25 Mcg = 1000 Iu)] 50 mcg PO BID Multivitamin [Multivitamins Adult Gummies] 1 each PO BID Ascorbic Acid [Vitamin C] 500 mg PO BID Zinc 50 mg PO HS Calcium Carbonate [Calcium] 600 mg PO BID Escitalopram [Lexapro] 5 mg PO DAILY Discharge Medication List Levothyroxine Sodium [Synthroid] 75 mcg PO DAILY 10/22/17 [History] Ascorbic Acid [Vitamin C] 500 mg PO BID 08/04/21 [History] Calcium Carbonate [Calcium] 600 mg PO BID 08/04/21 [History] Cholecalciferol [Vitamin D3 (25 Mcg = 1000 Iu)] 50 mcg PO BID 08/04/21 [History] Multivitamin [Multivitamins Adult Gummies] 1 each PO BID 08/04/21 [History] Zinc 50 mg PO HS 08/04/21 [History] Escitalopram [Lexapro] 5 mg PO DAILY 12/28/21 [History] Aspirin 81 mg PO BID 30 Days #60 tab 12/30/21 [Rx] Diclofenac Sodium [Voltaren] 75 mg PO BID 30 Days #60 tab 12/30/21 [Rx] Docusate [Colace] 100 mg PO BID #60 capsule 12/30/21 [Rx] HYDROcodone/APAP 5-325MG [[place] 5-325] 1 tab PO Q6HR PRN 7 Days #30 tab 12/30/21 [Rx] Omeprazole 40 mg PO DAILY 30 Days #30 cap 12/30/21 [Rx] Follow up Appointment(s)/Ref[facility] - As Needed Darryl Shell MD [Medical Doctor] - 2 Weeks Activity/Diet/Wound Care/Special Instructions: Weight bear as tolerated on operative leg with a walker. Keep operative dressings intact until follow-up appointment. Call the office if dressings fall off or become saturated. May shower with dressings on. Take pain medications as prescribed. Take aspirin 81mg BID x 4 weeks for blood clot prevention. Follow-up in the office in [address] Shell. Call the office with any questions or concerns, Discharge Disposition: HOME WITH HOME HEALTH SERVICES
--- NOTE | 2021-12-31 11:51 | P.PN ---
Subjective Doing, some mild pain in hip as expected. Has been up to ambulate to bathroom. Objective - Vital Signs Vital signs: Vital Signs Temp 98.3 F 12/31/21 07:21 Pulse 80 12/31/21 07:21 Resp 16 12/31/21 08:00 BP 112/70 12/31/21 07:21 Pulse Ox 94 L 12/31/21 07:21 Intake & Output 12/30/21 12/31/21 12/31/21 18:59 06:59 18:59 Intake Total 1000 Output Total 430 90 Balance 570 -90 Weight 68.4 kg Intake: IV 950 Intake, IV Titration 50 Amount ceFAZolin 2 gm In Sodium 50 Chloride 0.9% 50 ml @ 100 mls/hr IVPB Q8H HOLDEN Rx#: [id number] Output: Drainage 130 90 Right Hip 130 90 Estimated Blood Loss 300 Other: Voiding Method Toilet Toilet # Voids 1 # Bowel Movements 0 - Exam Right LE: dressing intact. Drain pulled. Thigh soft. Femoral nerve function intact. Motor and sensory intact distally. - Labs CBC & Chem 7: 12/31/21 04:28 Labs: Abnormal Lab Results - Last 24 Hours (Table) 12/31/21 Range/Units 04:28 RBC 3.45 L (4.10-5.20) X 10*6/uL Hgb 10.1 L (12.0-15.0) g/dL Hct 31.5 L (37.2-46.3) % Eosinophils # 0.02 L (0.04-0.35) X 10*3/uL Assessment and Plan Assessment: POD #1 s/p Left direct anterior total hip arthroplasty Plan: 1. WBAT, up with walker 2. PT/OT 3. DVT prophylaxis with ASA 81 mg bid x 4 weeks 4. Appreciate IM medical management 5. Dispo - anticipate d/c home today when passes PT and pain controlled
== END 2021-12-31 13:34 | disposition home health service (06) ==
LOC: OR 06:06 → 4SSUR 12:22 → OR 12-31 13:34
PROVIDERS: ATTEND Orthopaedic Surgery
DX: M16.11 Unilateral primary osteoarthritis, right hip (principal); M25.751 Osteophyte, right hip; E03.9 Hypothyroidism, unspecified; R26.81 Unsteadiness on feet; R63.5 Abnormal weight gain; Z97.3 Presence of spectacles and contact lenses; Z79.890 Hormone replacement therapy; Z88.2 Allergy status to sulfonamides; Z91.09 Other allergy status, other than to drugs and biological substances; Z87.891 Personal history of nicotine dependence; E78.5 Hyperlipidemia, unspecified; F32.A Depression, unspecified; Z90.49 Acquired absence of other specified parts of digestive tract; Z98.51 Tubal ligation status; F41.9 Anxiety disorder, unspecified; Z98.890 Other specified postprocedural states; Z82.49 Family history of ischemic heart disease and other diseases of the circulatory system; Z84.89 Family history of other specified conditions; Z79.82 Long term (current) use of aspirin; Z79.899 Other long term (current) drug therapy
CPT/HCPCS: 97162; 86900; 86901; 85025; 86850; 88300; 73501; 27130; C1776; J2250; J0360; J1200; J1100; J2710; J0690; J2405; J3010; J1885; J2370; J2704; J1170 ×2; J2001

== ENCOUNTER → 2022-02-28 | Outpatient (CLI) | payer MEDICARE, OTHER ==
--- NOTE | 2022-02-28 14:25 | MM ---
Reason for Exam: Follow-up at short interval from prior study. Last screening mammogram was performed 8 month(s) ago. Patient History: Menarche at age 13. First Full-Term at age 19. Postmenopausal. Estrogen, starting at age 51 for 4 years, 4 months. Progesterone, starting at age 51 for 4 years, 4 months. Cyst Aspiration on the Left side. 07/22/2021, Benign Core Biopsy on the left side. 01/21/2003, Ultrasound-Guided Core Biopsy on the Left side. 02/06/2003, Benign Stereotactic Core Biopsy on the right side. Niece had breast cancer under age 50. Risk Values: Idalia 5 year model risk: 1.9%. NCI Lifetime model risk: 5.5%. Prior Study Comparison: 04/26/2020 Bilateral Screening Mammogram, [facility]. 06/07/2021 Bilateral Screening Mammogram, [facility]. 06/24/2021 Left Diagnostic Mammogram, [facility]. Tissue Density: Left: The breast tissue is heterogeneously dense. This may lower the sensitivity of mammography. Findings: Analyzed By CAD. Microclip upper outer quadrant left breast from recent benign biopsy. Benign vascular calcifications and scattered punctate calcifications are redemonstrated. Chronic nodularity and areas of asymmetric density in the left breast remain unchanged. No significant change from prior exams. Overall Assessment: Benign, BI-RAD 2 Management: Screening Mammogram of both breasts in 6 months. 1. Patient should continue monthly self breast exams. 2. A clinical breast exam by your physician is recommended on an annual basis. 3. This exam should not preclude additional follow-up of suspicious palpable abnormalities. Results were given to the patient verbally at the time of exam. Electronically signed and approved by: Marie Gauthier M.D. Radiologist
== END | disposition home or self-care (01) ==
LOC: RADMAMWWP 13:58
PROVIDERS: ATTEND Surgery
DX: R92.8 Other abnormal and inconclusive findings on diagnostic imaging of breast (principal)
CPT/HCPCS: 77065; G0279; 77061

== ENCOUNTER → 2022-05-04 | Outpatient (CLI) | payer MEDICARE, OTHER ==
[2022-05-04 12:24] VITALS: BP 118/82; PULSE 82; RESP 16; TEMP 98.4
--- NOTE | 2022-05-04 13:15 | P.PN ---
Subjective Progress Note Date: 05/04/22 Principal diagnosis: fibrocystic breast disease Saranya is a 71 year old white female seen in consultation for Dr. Boss for abnormal left breast mammogram. She had a screening mammogram performed in May 2021 after which additional views of the left breast were recommended. The patient underwent a left breast diagnostic mammogram on [id number] which revealed heterogeneous calcifications and stereotactic core biopsy upper outer left breast was recommended. The patient did not feel anything of concern in her breasts. She was not complaining of any nipple discharge or skin changes. The patient had had a stereo biopsy of the right breast in the past which was benign. She had multiple aspirations of both breasts in the past. She has never had any cancer. A left breast stero biopsy was done on 07-22-21 which was benign. She had a bilateral mammogram on 02-28-22 which was BIRAD 2 benign. Is not complaining of any new lumps masses or nodules of concern in either breast. Idalia risk 1.9% five year risk. Discussed this with the patient. According to NCCN guidelines she will be considered high risk however she is not interested in any reduction prophylaxis. Caffeine:3 cups/day nicotine: none, stopped 20 years ago used to smoke 1/PPD for 35 years chocolate: occasional Family History: niece: breast cancer Hormonal History: menarche: 13 M1, breast fed: yes, age at first : 19 menopause: 46 BCP: 1 year hormones: none Surgical History: cleft palate tubaligation gallbladder bunyon left foot right hip replacement Medical History: hypothyroid anxiety Social History: nicotine: none/ prior smoker alcohol: 4 X year drugs: none - Constitutional Constitutional: Denies chills, Denies fever - EENT Eyes: denies blurred vision, denies pain Ears: deny: decreased hearing, tinnitus Ears, nose, mouth and throat: Denies headache, Denies sore throat - Breasts Breasts: bilateral: as per HPI - Cardiovascular Cardiovascular: Denies chest pain, Denies shortness of breath - Respiratory Respiratory: Denies cough - Gastrointestinal Gastrointestinal: Denies abdominal pain, Denies diarrhea, Denies nausea, Denies vomiting - Genitourinary (Female) Genitourinary: Denies dysuria, Denies hematuria - Menstruation Menstruation: Reports postmenopausal - Musculoskeletal Comment: ? arthritis right hip Musculoskeletal: Reports myalgias - Integumentary Integumentary: Denies pruritus, Denies rash - Neurological Neurological: Denies numbness, Denies weakness - Psychiatric Psychiatric: Denies anxiety, Denies depression - Endocrine Comment: hypothyroid - Allergic/Immunologic Allergic/Immunologic: Reports as per HPI Objective - Vital Signs Vital signs: Vital Signs Temp 98.4 F 05/04/22 12:22 Pulse 82 05/04/22 12:22 Resp 16 05/04/22 12:22 BP 118/82 05/04/22 12:22 Pulse Ox 95 05/04/22 12:22 FiO2 Intake & Output 05/03/22 05/04/22 05/04/22 18:59 06:59 18:59 Weight 65.771 kg - Exam BMI: 27.4 - Constitutional General appearance: Present: cooperative - EENT Eyes: Present: EOMI ENT: Present: hearing grossly normal - Neck Neck: Present: normal ROM - Respiratory Respiratory: bilateral: CTA - Cardiovascular Rhythm: regular Heart sounds: normal: S1, S2 - Gastrointestinal General gastrointestinal: Present: soft - Integumentary Integumentary: Present: normal turgor - Musculoskeletal Musculoskeletal: Present: gait normal - Psychiatric Psychiatric: Present: A&O x's 3, appropriate affect, intact judgment & insight - Additional findings Additional findings: Breast Exam: BRA: 38B Inspection: grade 2 ptosis bilateral Palpation: right breast: Multi-positional exam dense breast, no dominant masses or nodules of concern Right axilla: No adenopathy of concern Left breast: Multiple positional exam dense breasts, no dominant masses or nodules of concern Left axilla: No adenopathy of concern Assessment and Plan Assessment: Impression: Fibrocystic breast changes/dense breast tissue. Plan: Bilateral mammogram in 1 year with physician exam at that time We discussed decreasing coffee intake to possibly decrease breast density patient understands and will consider this CC: Dr. Boss
== END | disposition home or self-care (01) ==
LOC: WWCWWP 12:10
PROVIDERS: ATTEND Surgery
DX: Z53.9 Procedure and treatment not carried out, unspecified reason (principal)

== ENCOUNTER → 2022-06-12 | Outpatient (CLI) | payer MEDICARE, OTHER ==
--- NOTE | 2022-06-12 11:10 | MM ---
Reason for Exam: Follow-up at short interval from prior study. Last screening mammogram was performed 12 month(s) ago. Patient History: Menarche at age 13. First Full-Term at age 19. Postmenopausal. Patient has history of breast feeding. Estrogen, starting at age 51 for 4 years, 4 months. Progesterone, starting at age 51 for 4 years, 4 months. Cyst Aspiration on the Left side. 07/22/2021, Benign Core Biopsy on the left side. 01/21/2003, Ultrasound-Guided Core Biopsy on the Left side. 02/06/2003, Benign Stereotactic Core Biopsy on the right side. Niece had breast cancer, age 30. Risk Values: Idalia 5 year model risk: 1.9%. NCI Lifetime model risk: 5.2%. Prior Study Comparison: 03/31/1994 Screening Mammogram, Unknown. 02/17/2019 Bilateral Screening Mammogram, [facility]. 04/26/2020 Bilateral Screening Mammogram, [facility]. 06/07/2021 Bilateral Screening Mammogram, [facility]. 06/24/2021 Left Diagnostic Mammogram, [facility]. 02/28/2022 Left MG 3D diag mammo w/cad LT, [facility]. Tissue Density: The breast tissue is heterogeneously dense. This may lower the sensitivity of mammography. Findings: Analyzed By CAD. Microclip upper outer quadrant left breast previous biopsy. Biopsy clip within the right breast. Benign vascular calcifications scattered punctate calcifications redemonstrated. Chronic nodularity and areas of asymmetric density in the left breast remain unchanged. No significant change in prior exams. Overall Assessment: Benign, BI-RAD 2 Management: Screening Mammogram of both breasts in 1 year. A clinical breast exam by your physician is recommended on an annual basis and results should be correlated with mammographic findings. This exam should not preclude additional follow-up of suspicious palpable abnormalities. Results were given to the patient verbally at the time of exam. Electronically signed and approved by: Iron Claire D.O.
== END | disposition home or self-care (01) ==
LOC: RADMAMWWP 10:31
PROVIDERS: ATTEND Surgery
DX: R92.8 Other abnormal and inconclusive findings on diagnostic imaging of breast (principal)
CPT/HCPCS: 77066; G0279; 77062

== ENCOUNTER → 2022-06-16 | Outpatient (CLI) | payer MEDICARE, OTHER ==
--- NOTE | 2022-06-16 11:34 | P.PN ---
Progress Note - Text Progress Note Date: 06/16/22 Patient presents for results of bilateral mammogram on 06-12-22. It was BIRAD 2. She will have a bilateral mammogram in 1 year with an appointment at that time. CC: Dr. Boss
[2022-06-16 11:37] VITALS: BP 146/83; PULSE 83; RESP 17; TEMP 97.6
== END ==
LOC: WWCWWP 11:06
PROVIDERS: ATTEND Surgery
DX: R92.8 Other abnormal and inconclusive findings on diagnostic imaging of breast (principal); Z91.048 Other nonmedicinal substance allergy status; Z88.2 Allergy status to sulfonamides; Z87.891 Personal history of nicotine dependence; E66.9 Obesity, unspecified; Z68.27 Body mass index [BMI] 27.0-27.9, adult

== ENCOUNTER → 2023-06-12 | Outpatient (CLI) | payer MEDICARE, OTHER ==
--- NOTE | 2023-06-13 21:10 | MM ---
Reason for Exam: Screening (asymptomatic). Last screening mammogram was performed 12 month(s) ago. Patient History: Menarche at age 13. First Full-Term at age 19. Postmenopausal. Patient has history of breast feeding. Estrogen, starting at age 51 for 4 years, 4 months. Progesterone, starting at age 51 for 4 years, 4 months. Cyst Aspiration on the Left side. 07/22/2021, Benign Core Biopsy on the left side. 01/21/2003, Ultrasound-Guided Core Biopsy on the Left side. 02/06/2003, Benign Stereotactic Core Biopsy on the right side. Niece had breast cancer, age 30. Risk Values: Idalia 5 year model risk: 1.9%. NCI Lifetime model risk: 5.0%. Prior Study Comparison: 06/24/2021 Left Diagnostic Mammogram, [facility]. 02/28/2022 Left MG 3D diag mammo w/cad LT, [facility]. 06/12/2022 Bilateral MG 3D diag mammo w/cad GREGG, [facility]. Tissue Density: The breast tissue is heterogeneously dense. This may lower the sensitivity of mammography. Findings: Analyzed By CAD. A microclip within either breast from prior biopsies. Chronic nodularity on the left. There is no suspicious group of microcalcifications or new suspicious mass in either breast. Overall Assessment: Benign, BI-RAD 2 Management: Screening Mammogram of both breasts in 1 year. . Patient should continue monthly self-breast exams. A clinical breast exam by your physician is recommended on an annual basis. This exam should not preclude additional follow-up of suspicious palpable abnormalities. Note on Idalia scores and lifetime risk: 1. A Idalia score greater than 3% is considered moderate risk. If this is the case, consider specialist referral to assess eligibility for a risk reducing agent. 2. If overall lifetime risk for the development of breast cancer is 20% or higher, the patient may qualify for future screening with alternating mammogram and breast MRI. Electronically signed and approved by: Marie Gauthier M.D. Radiologist
== END | disposition home or self-care (01) ==
LOC: RADMAMWWP 12:36
PROVIDERS: ATTEND Surgery
DX: Z12.31 Encounter for screening mammogram for malignant neoplasm of breast (principal); Z78.0 Asymptomatic menopausal state; Z80.3 Family history of malignant neoplasm of breast
CPT/HCPCS: 77063; 77067

== ENCOUNTER → 2023-06-20 | Outpatient (CLI) | payer MEDICARE, OTHER ==
--- NOTE | 2023-06-20 14:09 | US ---
EXAMINATION TYPE: US kidneys/renal and bladder DATE OF EXAM: 06/20/2023 COMPARISON: US 2017 CLINICAL INDICATION: Female, 73 years old with history of R10.2 PELVIC PERINEAL PAIN; Pt states Right flank pain, microscopic hematuria EXAM MEASUREMENTS: Right Kidney: 11.1 x 4.4 x 4.6 cm Left Kidney: 10.4 x 5.4 x 4.9 cm Right Kidney: No evidence of hydro Left Kidney: Lobulated contour, no evidence of hydro Bladder: wnl Bilateral Jets seen: Yes There is no evidence for hydronephrosis at this point in time. No nephrolithiasis is seen. No donell s are identified. The urinary bladder is anechoic. Bilateral ureteral jets are seen. IMPRESSION: No distinct abnormality seen.
== END | disposition home or self-care (01) ==
LOC: RADUSWWP 13:35
PROVIDERS: ATTEND Family Medicine
DX: R31.29 Other microscopic hematuria (principal); R10.2 Pelvic and perineal pain
CPT/HCPCS: 76770

== ENCOUNTER → 2023-08-02 | Outpatient (CLI) | payer MEDICARE, OTHER ==
[2023-08-02 09:06] LABS: African American GFR (CKD) >90 (>60 ml/min/1.73 sqM); Blood Urea Nitrogen 13 mg/dL (7-17); Non-African American GFR(CKD) 86 (>60 ml/min/1.73 sqM)
--- NOTE | 2023-08-02 10:49 | CT ---
EXAMINATION: CT UROGRAM WITHOUT AND WITH IV CONTRAST DATE OF EXAMINATION: 08/02/2023. COMPARISON: None available. INDICATION: Hematuria. PROCEDURE: Axial CT of the abdomen and pelvis was performed with contrast and sagittal and coronal reformatted images were performed. CT dose lowering techniques were used, to include: automated expos ure control, adjustment for patient size, and/or use of iterative reconstruction. FINDINGS: LOWER CHEST : The visualized lung bases are clear. There are no pleural or pericardial effusions. ABDOMEN: Liver and Biliary system: Normal. Adrenal glands: Normal. Kidneys and ureters: Normal. Spleen: Normal. Pancreas: Normal. Gallbladder: Surgically absent. Lymph nodes, Peritoneum and mesentery: There is no mesenteric or retroperitoneal lymphadenopathy. Gastrointestinal tract: There are no dilated loops of bowel or free intraperitoneal air. The appe ndix is normal. There is moderate diffuse colonic diverticulosis without evidence of diverticulitis. Aorta/IVC: There is moderate vascular calcification throughout the abdominal aorta without evidence of aneurysmal dilation or dissection. IVC normal. Abdominal wall: Normal. PELVIS: Fluid: There is no free fluid in the pelvis. Lymph Nodes: There is no pelvic or inguinal lymphadenopathy.. Urinary bladder: Normal. BONES: There are no osseous destructive lesions.. ADDITIONAL SIGNIFICANT FINDINGS: None. IMPRESSION: 1. No renal stones or hydronephrosis. 2. No suspicious renal, urinary tract or bladder lesions identified. 3. Diverticulosis without evidence of diverticulitis.
== END | disposition home or self-care (01) ==
LOC: RADCTMAIN 08:06
PROVIDERS: ATTEND Obstetrics & Gynecology
DX: K57.30 Diverticulosis of large intestine without perforation or abscess without bleeding (principal); R31.9 Hematuria, unspecified
CPT/HCPCS: 82565; 84520; 74178; 36415; 74400; Q9967

== ENCOUNTER → 2024-06-18 | Outpatient (CLI) | payer MEDICARE, OTHER ==
--- NOTE | 2024-06-18 11:48 | MM ---
Reason for Exam: Screening (asymptomatic). Last screening mammogram was performed 12 month(s) ago. Patient History: Menarche at age 13. First Full-Term at age 19. Postmenopausal. Patient has history of breast feeding. Estrogen, starting at age 51 for 4 years, 4 months. Progesterone, starting at age 51 for 4 years, 4 months. Cyst Aspiration on the Left side. 07/22/2021, Benign Core Biopsy on the left side. 01/21/2003, Ultrasound-Guided Core Biopsy on the Left side. 02/06/2003, Benign Stereotactic Core Biopsy on the right side. Niece had breast cancer, age 30. Risk Values: Idalia 5 year model risk: 1.9%. NCI Lifetime model risk: 4.7%. Prior Study Comparison: 02/28/2022 Left MG 3D diag mammo w/cad LT, [facility]. 06/12/2022 Bilateral MG 3D diag mammo w/cad GREGG, [facility]. 06/12/2023 Bilateral MG 3D screening mammo w/cad, [facility]. Tissue Density: The breasts are heterogeneously dense, which may obscure small masses. Findings: Analyzed By CAD. Right breast biopsy clip. Right breast: There is no suspicious group of microcalcifications or new suspicious mass. Left breast: There is no suspicious group of microcalcifications or new suspicious mass. Overall Assessment: Negative, BI-RAD 1 Management: Screening Mammogram of both breasts in [address] [facility] will attempt to contact patient to return for supplemental views and ultrasound if indicated. Patient should continue monthly self-breast exams. A clinical breast exam by your physician is recommended on an annual basis. This exam should not preclude additional follow-up of suspicious palpable abnormalities. Note on Idalia scores and lifetime risk: 1. A Idalia score greater than 3% is considered moderate risk. If this is the case, consider specialist referral to assess eligibility for a risk reducing agent. 2. If overall lifetime risk for the development of breast cancer is 20% or higher, the patient may qualify for future screening with alternating mammogram and breast MRI. [facility], , 06/18/2024 11:36 AM. Electronically signed and approved by: Dante Stauffer DO
== END ==
LOC: RADMAMWWP 09:19
PROVIDERS: ATTEND Family Medicine
DX: Z12.31 Encounter for screening mammogram for malignant neoplasm of breast
CPT/HCPCS: 77063; 77067